=== PATIENT | female | born 1970 | race Caucasian/White ===

== ENCOUNTER 2017-08-19 14:24 | Outpatient (CLI) | payer OTHER | END 2017-08-19 14:25 | disposition home or self-care (01) | LOC: BICRAD 14:24 | PROVIDERS: ATTEND Internal Medicine Gastroenterology | DX: K59.09 Other constipation (principal) | CPT/HCPCS: 74022 ==

== ENCOUNTER 2018-01-05 13:51 | Outpatient (CLI) | payer OTHER ==
--- NOTE | 2018-01-05 16:02 | ULT ---
LEFT BREAST ULTRASOUND: History: Palpable abnormality of left breast. FINDINGS: Real-time imaging of the left breast at the 2 o'clock position was performed in the region of the pal pable abnormality. The palpable finding corresponds to an oblong shaped cyst measuring 2 cm. Directly adjacent to this is an irregular very vague area of decreased echogenicity which has a slightly spic ulated margin. This area is very suspicious for malignancy or possibly radial scar. The mammogram study confirms both of these lesions. On some of the spot views of the spiculated lesio n there appears to be the possibility of some central lucency. This raises the possibility that this represents an area of radial scar although carcinoma would still be considered the more likely possib ility. IMPRESSION: BIRADS category 4 - suspicious abnormality. Biopsy is recommended. I would recommend this as a needle localization and surgical excisional biopsy given some of the features on mammogram where the spicul ated area shows some possible central lucency which would raise the possibility that it represents an areas of radial scar. This and the fact that it is somewhat difficult to visualize consistently on u ltrasound would make the suggestion of an excisional biopsy as the first alternative. If desired, an ultrasound guided biopsy of the area of concern could be performed, however, if it does indeed turn o ut to be a radial scar, it would need an excisional biopsy after the procedure. These options were di scussed with the patient. Dr. Zurita's nurse was also informed of these results. POS: OFF
== END 2018-01-05 13:52 | disposition home or self-care (01) ==
LOC: BICMAMMO 13:51
PROVIDERS: ATTEND Obstetrics & Gynecology
DX: N63.21 Unspecified lump in the left breast, upper outer quadrant (principal); Z80.3 Family history of malignant neoplasm of breast
CPT/HCPCS: 77066; G0279

== ENCOUNTER → 2018-01-07 | Day surgery (SDC) | payer OTHER ==
--- NOTE | 2018-01-07 15:04 | ULT ---
LEFT BREAST BIOPSY WITH ULTRASOUND GUIDANCE: Date: 01/07/18 HISTORY: Irregular shadowing in the left breast. COMPARISON: 01/05/18. FINDINGS: Successful left breast ultrasound guided biopsy. A total of three 14 gauge core biopsy samples were p erformed. Tissue placed in Formalin. Post biopsy clip was placed. TECHNIQUE: Consent obtained to perform a left breast ultrasound guided biopsy. Irregular mass was identified. Sk in prepped and draped in sterile fashion. 1% lidocaine, buffered with sodium bicarbonate, was used fo r local anesthesia. Under ultrasound guidance, three 14 gauge core biopsy samples were obtained. Samp les place directly in Formalin. Post biopsy clip was placed. Post biopsy clip mammograms performed an d clip position is appropriate. IMPRESSION: Successful left breast biopsy with ultrasound guidance. POS: [facility]
== END ==
LOC: BICULT 12:44
PROVIDERS: ATTEND Surgery
PROC: 0HBU3ZX Excision of Left Breast, Percutaneous Approach, Diagnostic (ICD-10-PCS; principal; 2018-01-07)
DX: D05.12 Intraductal carcinoma in situ of left breast (principal); Z79.899 Other long term (current) drug therapy
CPT/HCPCS: 19100; 76942; 88305; 88341; 88342

== ENCOUNTER 2018-01-25 10:13 | Outpatient (CLI) | payer OTHER ==
[2018-01-25 11:55] LABS: #Basophils 0.1 thou/uL (0.0-0.2); #Eosinphils 0.1 thou/uL (0.0-0.7); #Lymphocytes 2.4 thou/uL (1.20-3.40); #Monocytes 0.7 thou/uL (0.11-0.59); #Neutrophils 6.6 thou/uL (1.40-6.50); %Basophils 1.1 % (0.0-1.0); %Eosinophils 0.8 % (0.0-10.0); %Lymphocytes 23.8 % (21.0-51.0); %Monocytes 7.4 % (0.0-10.0); %Neutrophils 66.7 % (42.0-75.0); Hemoglobin 15.2 g/dL (12.0-16.0); Mean Corpuscular HGB CONC 33.6 g/dL (32.0-36.0); Mean Corpuscular Hemoglobin 31.7 pg (27.0-31.0); Mean Corpuscular Volume 94.5 fL (78.0-98.0); Mean Platelet Volume 7.3 fL (7.4-10.4); Platelet Count 250 thou/uL (130-400); RBC Distribution Width 10.9 % (11.5-14.5); Red Blood Cell (RBC) Count 4.79 mill/uL (4.20-5.40); White Blood Cell (WBC) Count 9.9 thou/uL (4.8-10.8)
[2018-01-25 12:15] LABS: Anion Gap 10 mmol/L (10-20); BUN (Urea Nitrogen) 20 mg/dL (7.0-18.7); Calc. Creatinine Clearance 0 mL/min (70-130); Calcium 10.6 mg/dL (7.8-10.44); Carbon Dioxide 24 mmol/L (22-29); Chloride 107 mmol/L (98-107); Estimated GFR-MDRD 72; Glucose 89 mg/dL (70-105); Potassium 4.7 mmol/L (3.5-5.1); Sodium 136 mmol/L (136-145)
== END 2018-01-25 10:14 | disposition home or self-care (01) ==
LOC: LABBT 10:13
PROVIDERS: ATTEND Surgery
DX: Z01.812 Encounter for preprocedural laboratory examination (principal); C50.912 Malignant neoplasm of unspecified site of left female breast
CPT/HCPCS: 80048; 85025

== ENCOUNTER 2018-01-29 07:58 | Day surgery (SDC) | payer OTHER ==
[2018-01-25 10:49] VITALS: BMI 22.1
[2018-01-29] MEDS ORDERED: CEFAZOLIN 2 GM/50 ML BAG ONE (11:51)
[2018-01-29] MEDS ORDERED: Midazolam HCl 2 mg/2 ml Vial ONE (11:52)
[2018-01-29] MEDS ORDERED: Bupivacaine/Epinephrine 0.25% 30 ML VIAL ONE (12:20)
--- NOTE | 2018-01-29 12:24 | NM ---
RADIONUCLIDE LYMPHOSCINTIGRAPHY LEFT BREAST: Date: 01/29/18 HISTORY: left breast cancer. FINDINGS: After explaining the procedure and answering all questions, the areolar aspect of the left breast was carefully cleansed. Sterile technique was then used to inject a total volume of 1 mL liquid containi ng 386 microcuries technetium-99m filtered sulfur colloid intradermally in 4 equal aliquots at the 12 o'clock, 3 o'clock, 6 o'clock, and 9 o'clock periareolar positions of the left breast. Tissue was ma ssaged by the patient to distribute the radiotracer. Imaging was obtained. Immediate imaging showed r adiotracer uptake at the axillary tail of the left breast. Skin over the sentinel lymph node was marked and the patient was sent to day surgery in good conditio n. IMPRESSION: Left breast lymphoscintigraphy, revealing sentinel lymph node at the axillary tail left breast. POS: [facility]
--- NOTE | 2018-01-29 12:41 | MMO ---
NEEDLE LOCALIZATION MAMMOGRAPHIC GUIDED LEFT BREAST CANCER: HISTORY: Left breast cancer. FINDINGS: After explaining the procedure and answering all questions, the biopsy clip and mass at the lateral a spect of the left breast were visualized. Sterile technique, buffered local anesthesia, mammographic guidance, and a lateral approach were used to carefully advance a 20-elliott Ecru needle and wire to l ie immediately deep to the hyperdense mass at the lateral aspect of the left breast and immediately a nterior to the localization clip. The hyperdense mass lies approximately 1.5 cm from the tip of the needle. Final images were marked and sent with the patient for day surgery. The patient tolerated t he procedure well and was transferred to nuclear medicine department in good condition. IMPRESSION: Technically successful needle localization left breast cancer. POS: [facility]
[2018-01-29] MEDS ORDERED: Lidocaine 2% PF 5 ML VIAL ONE (12:43)
[2018-01-29] MEDS ORDERED: Fentanyl 100 MCG/2 ML VIAL ONE ×2 (12:48→14:22)
[2018-01-29] MEDS ORDERED: PROPOFOL 200 MG/20 ML VIAL ONE (13:20)
[2018-01-29] MEDS ORDERED: Ketorolac Tromethamine 30 MG/ML VIAL ONE (13:20)
[2018-01-29] MEDS ORDERED: Dexamethasone 20 MG/5 ML VIAL ONE (13:20)
[2018-01-29] MEDS ORDERED: Ondansetron PF 4 MG/2 ML Vial ONE (13:20)
--- NOTE | 2018-01-29 14:36 | OP ---
DATE OF PROCEDURE: 01/29/2018 PREOPERATIVE DIAGNOSIS: Left breast cancer, clinical stage T1 N0 MX. POSTOPERATIVE DIAGNOSIS: Left breast cancer, clinical stage T1 N0 MX. PROCEDURES: 1. Left partial mastectomy after needle localization. 2. Left deep axillary node biopsy using sentinel node protocol. SURGEON: Damian Schofield M.D. ANESTHESIA: General. ESTIMATED BLOOD LOSS: Minimal. COMPLICATIONS: None. SPECIMEN: Left breast mass marked with 2 short superior and 1 long lateral and sent to path for lebron shade diagnosis. Left sentinel node found and sent. INDICATION: The patient is a 47-year-old female who presents with a clinical stage T1 N0 left breast cancer. She had needle localization on the day of surgery as well as lymphoscintigraphy. TECHNIQUE: The patient was taken to the operating room and placed supine on the table. After genera l anesthetic was obtained, 5 mL of methylene blue dye infiltrated under the left nipple and massaged for 10 minutes. The left chest, axilla and arms are all prepped and draped in a sterile fashion. Cu rved incision was made at the inferior aspect of the left axilla. Cautery dissected down through cla vipectoral fascia. Neoprobe was used to find an area of increased counts. There is blue node in thi s area. A clump of lymph node is removed with high counts on the back table. The background count d ropped to zero. These were sent as sentinel nodes. The wound was irrigated. Local anesthetic was a pplied. The wound was closed using 3-0 Vicryl, 4-0 Monocryl and Dermabond. Next, an areolar incision was made on the lateral aspect of the left nipple and flaps were raised sup erior medially and inferior laterally around the needle localization wire. The specimen is sent to x -ray when it was marked with 2 short superior, 1 long lateral and sent to specimen. X-ray reveals th e clip and needle to be in the specimen. It was then sent to path for final diagnosis. The wound is irrigated. The wound was closed using 3-0 Vicryl, 4-0 Monocryl and Dermabond. The patient is en ro tribe to recovery in stable condition. All instrument counts, needle counts and lap counts were correc t.
--- NOTE | 2018-01-29 15:00 | MMO ---
SURGICAL SPECIMEN MAMMOGRAPHY: HISTORY: Breast cancer. FINDINGS: Mammographic evaluation of the surgical specimen obtained by Dr. Schofield shows the localization wire and clip and a hyperdense lesion to overlie the specimen soft tissue. Findings were called to OR6 at the time of the exam. CODE CR POS: [facility]
[2018-01-29] MEDS ORDERED: HYDROcodone/Acetaminophen 5/325 mg Tablet ONE (15:11)
== END 2018-01-29 16:45 | disposition home or self-care (01) ==
LOC: SDC 07:58
PROVIDERS: ATTEND Surgery
PROC: 0HBU0ZZ Excision of Left Breast, Open Approach (ICD-10-PCS; principal; 2018-01-29)
PROC: 07B60ZX Excision of Left Axillary Lymphatic, Open Approach, Diagnostic (ICD-10-PCS; principal; 2018-01-29)
DX: C50.512 Malignant neoplasm of lower-outer quadrant of left female breast (principal); C77.3 Secondary and unspecified malignant neoplasm of axilla and upper limb lymph nodes; R56.9 Unspecified convulsions; Z17.0 Estrogen receptor positive status [ER+]; Z79.899 Other long term (current) drug therapy
CPT/HCPCS: 19281; 76098; 78195; 88307; 88342; 96374; A9541; J2001; J2250; J3010; Q9968

== ENCOUNTER 2018-02-09 09:12 | Outpatient (CLI) | payer OTHER ==
--- NOTE | 2018-02-09 14:12 | NM ---
WHOLE BODY BONE SCAN: HISTORY: A 47-year-old female with malignant neoplasm of the upper, outer quadrant of the left breast. Left b reast cancer. RADIOPHARMACEUTICAL: Technetium 99m MDP, 32 millicuries, injected intravenously. COMPARISON: None. FINDINGS: Increased uptake in the shoulders, sternoclavicular joints, elbows, wrists, ankles, and feet is consi stent with degenerative changes. There is a focal area of increased uptake in the right 10th rib. Tracer excretion through the kidneys is within normal limits. 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 Correlation with plain radiographs is recommended. POS: [facility]
== END 2018-02-09 09:13 | disposition home or self-care (01) ==
LOC: NM 09:12
PROVIDERS: ATTEND Internal Medicine Hematology & Oncology
DX: C50.919 Malignant neoplasm of unspecified site of unspecified female breast (principal)
CPT/HCPCS: 78306; A9503

== ENCOUNTER 2018-02-17 10:02 | Outpatient (CLI) | payer OTHER ==
--- NOTE | 2018-02-17 12:28 | RAD ---
CHEST TWO VIEW SERIES: History: Malignant neoplasm of breast. FINDINGS: There is an area of air density overlying the left breast soft tissues. No focal consolidation, effus ion, or discrete pneumothorax. Reference right rib series for additional details. Catheter tubing ove rlying the upper abdomen. IMPRESSION: 2. Air density of the left breast soft tissues. Correlate clinically. 2. No focal consolidation. POS: [facility]
--- NOTE | 2018-02-17 12:55 | RAD ---
RIGHT RIBS THREE VIEWS: History: Abnormal activity on bone scan at the posterior right 10th rib. Assess for possible metastatic lesion . History of breast cancer. FINDINGS: Three views of right ribs obtained. On the oblique view of the lower ribs there is a questioned subtle lucency in the posterior right ten th rib which would correspond to the area of activity seen on recent bone scan. This is not appreciat ed on the two other images although the 10th rib is somewhat obscured on the other two images due to the hemidiaphragm. CT could provide better osseous definition of this lesion. IMPRESSION: On a single oblique image there is suggestion of an area of lucency in the posterior right 10th rib w hich would correspond to the area of activity noted on bone scan. This is poorly evaluated by plain f ilm. Consider CT scan. POS: [facility]
== END 2018-02-17 10:03 | disposition home or self-care (01) ==
LOC: BICRAD 10:02
PROVIDERS: ATTEND Internal Medicine Hematology & Oncology
DX: C50.412 Malignant neoplasm of upper-outer quadrant of left female breast (principal); R93.7 Abnormal findings on diagnostic imaging of other parts of musculoskeletal system; R92.2 Inconclusive mammogram
CPT/HCPCS: 71046

== ENCOUNTER 2018-02-25 12:49 | Outpatient (CLI) | payer OTHER ==
[~2018-02-25 12:49] MED LIST: Iopamidol 370 76% 100 ML VIAL ONE
--- NOTE | 2018-02-25 15:51 | CT ---
CHEST CT WITH CONTRAST ABDOMEN CT WITH CONTRAST PELVIC CT WITH CONTRAST 02/25/18 HISTORY: Left breast lumpectomy in January 2018. Breast cancer. Possible lesion in the left 10th rib noted on recent bone scan. CORRELATION: Bone scan 02/09/18. FINDINGS: CHEST CT: Trachea and central bronchi are patent. No masses. No consolidation. No pleural effusion or pneumotho rax. Dependent atelectatic changes are noted. There is a large mass in the left breast which may represent tumor versus hematoma. Correlate clinica lly. This mass measures 6.1 x 3.9 cm with attenuation coefficient of 33 Hounsfield units. No mediastinal hematoma or mass. There is a small amount of fluid in the superior pericardial recess. No hilar lymphadenopathy. Heart size is normal. No pericardial effusion. The thoracic and abdominal aorta have a normal caliber. No periaortic fat stranding. Note is made of a gastric lap band. No evidence of significant right axillary lymphadenopathy. Possible marginal left axillary lymph node measuring 1.1 x [address]: Liver, spleen, pancreas and adrenal glands have appropriate enhancement. No gastrohepatic, retrocrural or periportal lymphadenopathy. Unremarkable gallbladder. No mesenteric mass, lymphadenopathy, free air or free fluid. Symmetric attenuation of the psoas muscl es. Symmetric enhancement of the kidneys. Bilaterally, no obstructive uropathy. Gastric mucosa, duodenum and multiple normal caliber small bowel loops are noted. As stated above, th ere is evidence of a gastric lap band. Ileocecal junction is normal. Normal caliber appendix. Contras t and fecal material in a nondistended, nondilated colon. CT PELVIS: Urinary bladder is unremarkable. Both adnexal structures are also unremarkable. There is no pelvic ma ss, lymphadenopathy or free air. Small amount of free fluid is noted. No lytic or blastic lesions in the bony thorax or bony pelvis. There is no CT evidence of metastases in the posterior left 9th, 10th, 11th rib. IMPRESSION: 1. No evidence of metastases in the abdomen or pelvis. 2. No evidence of a lung parenchymal nodule. 3. Presumed postoperative changes in the left breast. Residual tumor cannot be excluded. Mildly enlarged left axillary lymph node as described above. 4. No evidence of metastases in the chest. POS: [facility]
== END 2018-02-25 12:50 | disposition home or self-care (01) ==
LOC: BICCT 12:49
PROVIDERS: ATTEND Internal Medicine Hematology & Oncology
DX: C50.412 Malignant neoplasm of upper-outer quadrant of left female breast (principal); R59.0 Localized enlarged lymph nodes
CPT/HCPCS: 71260; 74177

== ENCOUNTER 2018-09-26 23:52 | Emergency (ER) | payer OTHER ==
[2018-09-27] MEDS ORDERED: Ondansetron PF 4 MG/2 ML Vial ONE (00:36)
[2018-09-27] MEDS ORDERED: Promethazine HCl 25 MG/ML VIAL ONE (01:05)
[2018-09-27] MEDS ORDERED: Morphine 2 MG/ML SYRINGE ONE (01:05)
[2018-09-27 01:11] LABS: #Basophils 0.1 thou/uL (0.0-0.2); #Eosinphils 0.1 thou/uL (0.0-0.7); #Lymphocytes 1.1 thou/uL (1.20-3.40); #Monocytes 0.5 thou/uL (0.11-0.59); #Neutrophils 7.6 thou/uL (1.40-6.50); %Basophils 0.8 % (0.0-1.0); %Eosinophils 0.7 % (0.0-10.0); %Lymphocytes 11.5 % (21.0-51.0); %Monocytes 5.2 % (0.0-10.0); %Neutrophils 81.8 % (42.0-75.0); Hemoglobin 13.3 g/dL (12.0-16.0); Mean Corpuscular HGB CONC 34.7 g/dL (32.0-36.0); Mean Corpuscular Hemoglobin 33.7 pg (27.0-31.0); Mean Platelet Volume 7.2 fL (7.4-10.4); Platelet Count 160 thou/uL (130-400); RBC Distribution Width 10.7 % (11.5-14.5); Red Blood Cell (RBC) Count 3.95 mill/uL (4.20-5.40); White Blood Cell (WBC) Count 9.3 thou/uL (4.8-10.8)
[2018-09-27 01:47] LABS: ALT (SGPT) 28 U/L (8-55); AST (SGOT) 22 U/L (5-34); Albumin 3.8 g/dL (3.5-5.0); Alkaline Phosphatase 60 U/L (40-150); Anion Gap 11 mmol/L (10-20); BUN (Urea Nitrogen) 18 mg/dL (7.0-18.7); Bilirubin, Total 0.2 mg/dL (0.2-1.2); Calc. Creatinine Clearance 0 mL/min (70-130); Calcium 9.2 mg/dL (7.8-10.44); Carbon Dioxide 22 mmol/L (22-29); Chloride 109 mmol/L (98-107); Estimated GFR-MDRD 60; Globulin 2.6 g/dL (2.4-3.5); Glucose 143 mg/dL (70-105); Potassium 4.2 mmol/L (3.5-5.1); Protein, Total 6.4 g/dL (6.0-8.3); Sodium 138 mmol/L (136-145)
[2018-09-27 02:30] LABS: Bilirubin Negative (Negative); Blood, Urine Negative (Negative); Clarity Clear (Clear); Glucose, Urine (Dipstick) Normal (Negative); Leukocyte Negative Leu/uL (Negative); Nitrite Negative (Negative); Protein, Urine (Dipstick) Negative (Neg-Trace); Urobilinogen Normal mg/dL (Less than 2)
[2018-09-27] MEDS ORDERED: Aspirin Chewable 81 MG TAB ONE (02:37)
--- NOTE | 2018-09-27 07:50 | CT ---
PRELIMINARY REPORT/[facility]/EMERGENCY AFTER HOURS PROCEDURE: EXAM: CT Angiography Chest With Contrast EXAM DATE/TIME: 09/27/2018 1:48 AM CLINICAL HISTORY: 47 years old, female; Chest pain; Patient HX: Presents to ED after unwitnessed syncopal episode. PT reports this sometimes happens when she has a virus. PT reports long drive today, moving furniture when she returned, and that she passed out while going to get a drink of water when she got home. PT reports normal po intake. PT reports bilateral breast tenderness after remission of stage 2 breast cancer, stage 0 after radiation without chemotherapy. PT reports nausea. Historian reports PT has been pale looking since this am, but reports. PT denies hematochezia, or vaginal bleeding. PT reports pain to bilateral calves. PT denies history of blood clots. PT denies abd pain, back pain. PT reports pain to, SOB. PT reports chest tightness that she relates to anxiety. PT reports pain to tailbone due to fall from syncope. PT reports she is unsure if she hit her head. PT denies h/o anemia . PT denies smoking history. Fhx: Mi, father at 50. Hyperlipidemia, HTN. SX: Partial hysterectomy. TECHNIQUE: Imaging protocol: Axial computed tomographic angiography images of the chest with intravenous contrast using CT angiography protocol. Coronal and sagittal reformatted images were created and reviewed. 3D rendering: MIP reconstructed images were created and reviewed. COMPARISON: No relevant prior studies available. FINDINGS: Tubes, catheters and devices: Gastric banding device present. Small hiatal hernia. Esophagus is unremarkable. Pulmonary arteries: Normal. No pulmonary emboli. Aorta: Unremarkable. No aortic aneurysm. No aortic dissection. Thyroid: Incompletely visualized right thyroid nodule. Lungs: Scarring/post radiation change in the anterolateral left lung. Pleural space: Unremarkable. No pneumothorax. No pleural effusion. Heart: Unremarkable. No cardiomegaly. No pericardial effusion. Lymph nodes: Unremarkable. No enlarged lymph nodes. Bones/joints: Unremarkable. No acute fracture. Soft tissues: Diffuse skin thickening of the left breast with a 3 cm low attenuation nodular structur e in the left breast, potentially sequelae of treated breast cancer per report. Recommend correlation with history and breast imaging workup if necessary. IMPRESSION: 1. Incompletely visualized right thyroid nodule. 2. Diffuse skin thickening of the left breast with a 3 cm low attenuation nodular structure in the le ft breast, potentially sequelae of treated breast cancer per report. Recommend correlation with history and breast imaging workup if necessary. Thank you for allowing us to participate in the care of your patient. Dictated and Authenticated by: Amilcar Manzo MD 09/27/2018 2:54 AM Central Time ([place] & [place]) FINAL REPORT Exam: CT ANGIOGRAM CHEST WITH 3D RENDERING: IMPRESSION: Incompletely visualized right thyroid nodule. Skin thickening left breast with evidence for postoperative change in the left breast and some left a nterior lateral upper lobe somewhat pleural-based scarring probably from radiation. This report is in agreement with a preliminary report. Transcribed Date/Time: 09/27/2018 8:08 AM
--- NOTE | 2018-09-27 07:51 | ULT ---
PRELIMINARY REPORT/[facility]/EMERGENCY AFTER HOURS PROCEDURE: EXAM: US Duplex Left Lower Extremity Veins, Limited EXAM DATE/TIME: 09/27/2018 2:05 AM CLINICAL HISTORY: 47 years old, female; Other: Lt calf pain TECHNIQUE: Imaging protocol: Real-time Duplex ultrasound of the Left Lower Extremity with 2-D fox scale, color Doppler flow and spectral waveform analysis. Limited exam focused on the left lower extremity veins. COMPARISON: No relevant prior studies available. FINDINGS: Left deep veins: Unremarkable. The common femoral, femoral, proximal profunda femoral and popliteal veins are patent without thrombus. Normal Doppler waveforms. Normal compressibility and/or augmentation response. Left superficial veins: Unremarkable. Saphenofemoral junction is patent without thrombus. Soft tissues: Unremarkable. IMPRESSION: No acute findings. No evidence of deep vein thrombosis. Thank you for allowing us to participate in the care of your patient. Dictated and Authenticated by: Amilcar Manzo MD 09/27/2018 2:49 AM Central Time ([place] & [place]) FINAL REPORT BY DR. ANTHONY Emergency after-hours study ULTRASOUND DOPPLER DUPLEX VENOUS LEFT LOWER EXTREMITY: DATE: 09/27/2018 HISTORY: 47-year-old female with left lower extremity pain TECHNIQUE: Grayscale, color-flow, and spectral analysis, of major veins of left lower extremity. FINDINGS: There is demonstration of blood flow with normal compressibility, of the left common femoral, profund a femoral, greater saphenous, femoral, popliteal, and posterior tibial, veins. Agree with preliminary report by [facility]. IMPRESSION: Negative. No deep venous thrombosis of left lower extremity. Transcribed Date/Time: 09/27/2018 8:10 AM
[2018-09-27] MEDS ORDERED: ISOVUE-370 76%-LOCM 1 ML ONE (12:05)
--- NOTE | 2018-10-02 13:21 | EKG ---
Test Reason : Blood Pressure : / mmHG Vent. Rate : 068 BPM Atrial Rate : 068 BPM P-R Int : 146 ms QRS Dur : 088 ms QT Int : 402 ms P-R-T Axes : 051 065 038 degrees QTc Int : [address] elevation/MT Normal sinus rhythm Normal ECG Confirmed by CYRIL MCKEON M.D. ([id number]), scientific publications editor MAGALIS ARIAS ([id number]) on 10/02/2018 1:21:31 PM Referred By: Confirmed By:CYRIL MCKEON M.D.
--- NOTE | 2018-10-02 13:23 | EKG ---
Test Reason : Blood Pressure : / mmHG Vent. Rate : 065 BPM Atrial Rate : 065 BPM P-R Int : 138 ms QRS Dur : 086 ms QT Int : 412 ms P-R-T Axes : 043 057 029 degrees QTc Int : 428 ms Normal sinus rhythm Normal ECG Confirmed by CYRIL MCKEON M.D. ([id number]), acquisition editor MAGALIS ARIAS ([id number]) on 10/02/2018 1:22:52 PM Referred By: Confirmed By:CYRIL MCKEON M.D.
== END 2018-09-27 05:04 | disposition home or self-care (01) ==
LOC: ERS 23:52
DX: R07.89 Other chest pain (principal); R55 Syncope and collapse; E04.1 Nontoxic single thyroid nodule; E03.9 Hypothyroidism, unspecified; Z79.899 Other long term (current) drug therapy
CPT/HCPCS: 36415; 71275; 80053; 81003; 83880; 84484; 85025; 85379; 93005; 96361; 96374; 96375; J2270; J2405; J2550; Q9966

== ENCOUNTER 2018-11-12 11:23 | Emergency (ER) | payer OTHER ==
[~2018-11-12 11:23] MED LIST changes: +ISOVUE-370 76%-LOCM 1 ML ONE; -Iopamidol 370 76% 100 ML VIAL ONE
[2018-11-12 12:39] LABS: Bilirubin Negative (Negative); Blood, Urine Negative (Negative); Clarity Clear (Clear); Glucose, Urine (Dipstick) Normal (Negative); Leukocyte Negative Leu/uL (Negative); Nitrite Negative (Negative); Protein, Urine (Dipstick) Negative (Neg-Trace); Urobilinogen Normal mg/dL (Less than 2)
--- NOTE | 2018-11-12 12:59 | RAD ---
Exam: Chest one view HISTORY:Syncope Comparison: None FINDINGS: Cardiac silhouette: Normal Aorta: Unremarkable Pulmonary vessels: Normal Costophrenic angles: Clear LUNGS: No masses or consolidation. Pneumothorax: None Osseous abnormalities: None IMPRESSION: No acute cardiopulmonary process.
--- NOTE | 2018-11-12 13:00 | RAD ---
Exam: 3 views sacrum and coccyx HISTORY: Pain. FINDINGS: Sacral alar are preserved Symmetric sacroiliac joints spaces Intact bony pelvis. No evidence of a sacrococcygeal fracture IMPRESSION: Unremarkable exam.
[2018-11-12 13:07] LABS: #Lymphocytes 0.9 thou/uL (1.20-3.40); #Monocytes 0.5 thou/uL (0.11-0.59); #Neutrophils 6.8 thou/uL (1.40-6.50); %Basophils 0.3 % (0.0-1.0); %Eosinophils 0.3 % (0.0-10.0); %Lymphocytes 10.4 % (21.0-51.0); %Monocytes 6.2 % (0.0-10.0); %Neutrophils 82.8 % (42.0-75.0); Hemoglobin 13.6 g/dL (12.0-16.0); Mean Corpuscular HGB CONC 34.4 g/dL (32.0-36.0); Mean Corpuscular Hemoglobin 33.3 pg (27.0-31.0); Mean Corpuscular Volume 96.8 fL (78.0-98.0); Mean Platelet Volume 7.5 fL (7.4-10.4); Platelet Count 164 thou/uL (130-400); Red Blood Cell (RBC) Count 4.09 mill/uL (4.20-5.40); White Blood Cell (WBC) Count 8.3 thou/uL (4.8-10.8)
[2018-11-12 13:29] LABS: ALT (SGPT) 21 U/L (8-55); AST (SGOT) 19 U/L (5-34); Albumin 3.9 g/dL (3.5-5.0); Alkaline Phosphatase 57 U/L (40-150); Anion Gap 9 mmol/L (10-20); BUN (Urea Nitrogen) 14 mg/dL (7.0-18.7); Bilirubin, Total 0.3 mg/dL (0.2-1.2); Calc. Creatinine Clearance 0 mL/min (70-130); Calcium 9.8 mg/dL (7.8-10.44); Carbon Dioxide 24 mmol/L (22-29); Chloride 109 mmol/L (98-107); Estimated GFR-MDRD 64; Globulin 2.8 g/dL (2.4-3.5); Glucose 127 mg/dL (70-105); Lipase 73 U/L (8-78); Magnesium 2.1 mg/dL (1.6-2.6); Potassium 4.6 mmol/L (3.5-5.1); Protein, Total 6.7 g/dL (6.0-8.3); Sodium 137 mmol/L (136-145)
--- NOTE | 2018-11-12 14:12 | CT ---
EXAM: CT ABDOMEN AND PELVIS HISTORY: Syncope. Pain and nausea. History of breast cancer. COMPARISON: 02/25/2018 Procedure: Multiple contiguous axial images were obtained and a CT of the abdomen and pelvis with IV contrast. C oronal reformats were performed. FINDINGS: Lower Chest: Linear opacities in the lingula, likely representing post treatment change. Otherwise, l david bases are unremarkable Vessels: Normal caliber aorta Heart: Normal heart size. No significant pericardial fluid Abdomen: Portal vein:Patent Gallbladder: No calcified gallstones. Normal caliber wall. Liver: within normal limits. Pancreas: within normal limits. Spleen: within normal limits. Adrenals: within normal limits. Kidneys: Symmetric enhancement. Bilaterally no obstructive uropathy. Peritoneum: No ascites or free air, no fluid collection. Bowel: Limited evaluation due to lack of oral contrast administration. Percutaneous gastric lap band is demonstrated. There is a stable hiatal hernia with mucosal thickening of the distal thoracic esophagus. No evidence of small bowel obstruction. Ileocecal junction is unremarkable. Normal caliber appendix. Scattered fecal material in a nondistended, nondilated colon. Mesentery and Retroperitoneum: No enlarged mesenteric or retroperitoneal lymph nodes. Abdominal Wall: within normal limits. Pelvis: Reproductive Organs: Surgically absent uterus. Hypodensities in the left and right adnexa likely repr esenting bilateral ovarian cysts Pelvis: Small amount of free fluid in the pelvis Bladder: within normal limits. Bones: There are no osteoblastic or osteolytic lesions IMPRESSION: 1. No evidence of acute intraabdominal\pelvic abnormality. 2. Percutaneous gastric lap band as described above. Consider general surgical consultation.
== END 2018-11-12 14:37 | disposition home or self-care (01) ==
LOC: ERS 11:23
DX: N83.201 Unspecified ovarian cyst, right side (principal); N83.202 Unspecified ovarian cyst, left side; R55 Syncope and collapse; E03.9 Hypothyroidism, unspecified; Z79.899 Other long term (current) drug therapy
CPT/HCPCS: 36415; 71045; 72220; 74177; 80053; 81003; 83690; 83735; 84484; 85025; 85379; 93005; 96360; Q9966

== ENCOUNTER 2018-11-23 12:58 | Outpatient (CLI) | payer OTHER ==
[2018-11-23 14:06] LABS: Hemoglobin 13.7 g/dL (12.0-16.0); Mean Corpuscular HGB CONC 35.3 g/dL (32.0-36.0); Mean Corpuscular Hemoglobin 33.6 pg (27.0-31.0); Mean Corpuscular Volume 95.3 fL (78.0-98.0); Mean Platelet Volume 7.8 fL (7.4-10.4); Platelet Count 206 thou/uL (130-400); Red Blood Cell (RBC) Count 4.08 mill/uL (4.20-5.40); White Blood Cell (WBC) Count 7.6 thou/uL (4.8-10.8)
== END 2018-11-23 12:59 | disposition home or self-care (01) ==
LOC: LABBT 12:58
PROVIDERS: ATTEND Obstetrics & Gynecology
DX: Z01.812 Encounter for preprocedural laboratory examination (principal); Z85.3 Personal history of malignant neoplasm of breast
CPT/HCPCS: 85027; 86850; 86900; 86901

== ENCOUNTER 2018-11-24 10:17 | Day surgery (SDC) | payer OTHER ==
[2018-11-23 13:07] VITALS: BMI 22.8
[2018-11-24] MEDS ORDERED: Gabapentin 300 MG CAP ONE (10:40)
[2018-11-24] MEDS ORDERED: CeleCOXIB 100 MG CAP ONE (10:40)
[2018-11-24] MEDS ORDERED: Bupivacaine/Epinephrine 0.25% 30 ML VIAL ONE (11:03)
[2018-11-24] MEDS ORDERED: Scopolamine 1.5 mg/72 hour Patch ONE (11:21)
[2018-11-24] MEDS ORDERED: Bupivacaine HCl 0.5%/Epinephrine 1:200,000/PF 30 ml Vial ONE (11:43)
[2018-11-24] MEDS ORDERED: Propofol 1,000 MG/100 ML VIAL IV ONE (11:46)
[2018-11-24] MEDS ORDERED: Fentanyl 100 MCG/2 ML VIAL ONE ×3 (11:59→14:39)
[2018-11-24] MEDS ORDERED: Midazolam HCl 2 mg/2 ml Vial ONE ×2 (11:59→12:00)
[2018-11-24] MEDS ORDERED: Promethazine HCl 25 MG/ML VIAL ONE (14:47)
--- NOTE | 2018-11-24 20:05 | OP ---
DATE OF PROCEDURE: 11/24/2018 PREOPERATIVE DIAGNOSES: History of breast cancer, history of hysterectomy, pelvic pain, and ovarian cyst. POSTOPERATIVE DIAGNOSES: History of breast cancer, history of hysterectomy, pelvic pain, and ovarian cyst. PROCEDURES PERFORMED: Laparoscopic left oophorectomy, right salpingo-oophorectomy, and lysis of adhesions. CARDBOARD CUTTER: Michaela River PA-C ANESTHESIA: GETA. COMPLICATIONS: None. ESTIMATED BLOOD LOSS: Less than 5 mL. INTRAOPERATIVE FINDINGS: 1. Adhesive disease of the large bowel to the left pelvic sidewall and anterior abdominal wall. 2. Normal-appearing right ovary and fallopian tube segment adhered to the anterior abdominal wall, left ovary with no tubal segment noted adhered to the left pelvic sidewall. Ureters identified bilaterally. DESCRIPTION OF PROCEDURE: The patient was taken back to the OR with IV fluids running. When she was in the OR, she was placed in dorsal supine position and anesthesia was obtained. Once the patient was asleep, she was placed in low dorsal lithotomy position. The abdomen and vagina were prepped and draped in normal fashion for gynecologic laparoscopy. A Hunt catheter was placed into the bladder. The surgeons were gowned and gloved, and sponge stick was placed into the vagina using sterile technique. Surgeon's gloves were changed, and attention was turned to the laparoscopic portion of the case. Beginning at the infraumbilical fold, local anesthesia was placed through the skin and subcutaneous tissue. An 8-mm skin incision was made with a scalpel, and a Veress needle was placed through this incision. The abdomen was insufflated without difficulty. The 8-mm trocar was placed under direct visualization through the abdominal wall with the above findings noted. A right lower quadrant 10 mm and left lower quadrant 5 mm port were placed using similar technique under direct visualization. The right ovary was easily visualized as it was adhered to the anterior abdominal wall. The midline pelvis and left pelvic sidewall had a series of adhesions between the bowel and the anterior abdominal wall noted. Blunt dissection and the LigaSure were used to free these adhesions from the abdominal and pelvic sidewall to allow for visualization and access to the left ovary. After the lysis of adhesions was completed, which had approximately 20 minutes to the case, both ovaries were then easily visualized in normal-appearing. Beginning on the patient's right side, the right ovary was grasped and elevated away from the pelvic sidewall and abdominal wall. The LigaSure device was used to cauterize and dissect the right ovary and right fallopian tube segment until was completely dissected. The tubal segment was removed through the port, and the right ovary was left in the pelvis for removal later during the case. Left ovary was noted to be very densely adhered to the left pelvic sidewall. The left ureter was identified prior to beginning the dissection of the left ovary. The left ovary was grasped and elevated away from the sidewall using a blunt grasper. Blunt dissection technique was used to remove filmy adhesions of the ovary to the left pelvic sidewall and to mobilize it away from the pelvic sidewall and ureter. Once this was complete, the LigaSure device was used to dissect and remove the left ovary. The left ovary was removed under direct visualization through the right 8 mm port and was sent for pathologic review. Next, an EndoCatch bag was placed in the operative field in the right ovary. Specimen was placed into this bag. The specimen was then removed and sent for pathologic review. Laparoscopic trocar device was then used to close the 10 mm right trocar site at the abdominal wall. The areas of dissection were all irrigated and suctioned dry. Some remaining adhesive disease noted in the cul-de-sac, where the colon was adhered to the abdominal wall were cleared with blunt dissection. The pelvis was irrigated and suctioned dry. The pressure was dropped to 6 mmHg with no evidence of bleeding noted. The instrument count was correct. All instruments were removed from the abdominal cavity. The gas was released from the abdomen. All 3 skin incisions were closed with Monocryl suture and dressed with Dermabond dressing. The patient was extubated and taken to recovery room in good condition. Of note, prior to transferring the patient, the Hunt catheter and sponge stick were removed. Job ID: [id number]
== END 2018-11-24 17:19 | disposition home or self-care (01) ==
LOC: SDC 10:17
PROVIDERS: ATTEND Obstetrics & Gynecology
PROC: 0UT24ZZ Resection of Bilateral Ovaries, Percutaneous Endoscopic Approach (ICD-10-PCS; principal; 2018-11-24)
PROC: 0UT74ZZ Resection of Bilateral Fallopian Tubes, Percutaneous Endoscopic Approach (ICD-10-PCS; principal; 2018-11-24)
PROC: 0UT54ZZ Resection of Right Fallopian Tube, Percutaneous Endoscopic Approach (ICD-10-PCS; principal; 2018-11-24)
DX: N83.02 Follicular cyst of left ovary (principal); N83.8 Other noninflammatory disorders of ovary, fallopian tube and broad ligament; Z79.899 Other long term (current) drug therapy; Z85.3 Personal history of malignant neoplasm of breast; Z90.710 Acquired absence of both cervix and uterus
CPT/HCPCS: 88305; J0131; J0670; J0690; J2250; J2550; J2704; J3010

== ENCOUNTER 2019-01-06 08:13 | Outpatient (CLI) | payer OTHER ==
--- NOTE | 2019-01-06 08:54 | MMO ---
Bilateral MAMMO Bilat Diag [facility]. CLINICAL HISTORY: Patient is 48 years old and is seen for diagnostic exam. The patient has the following family history of breast cancer: mother and maternal aunt. The patient has no personal history of cancer. The patient has a history of left Lumpectomy in January, - malignant and left Ultrasound Guided Core Biopsy in December, - malignant. VIEWS: The views performed were: bilateral craniocaudal with tomosynthesis; bilateral mediolateral oblique with tomosynthesis; and bilateral mediolateral with tomosynthesis. FILMS COMPARED: The present examination has been compared to prior imaging studies performed at [facility] on 03/27/2015, 02/18/2016, 02/18/2017 and 01/05/2018. This study has been interpreted with the assistance of computer-aided detection. MAMMOGRAM FINDINGS: The breasts are heterogeneously dense, which could obscure a lesion on mammography. There are post operative changes seen in the left breast. There are no suspicious masses, suspicious calcifications, or new areas of architectural distortion. IMPRESSION: THERE IS NO MAMMOGRAPHIC EVIDENCE OF MALIGNANCY. A ROUTINE FOLLOW-UP MAMMOGRAM IN 1 YEAR IS RECOMMENDED. THE RESULTS OF THIS EXAM WERE SENT TO THE PATIENT. ACR BI-RADS Category 2 - Benign finding MAMMOGRAPHY NOTE: 1. A negative mammogram report should not delay a biopsy if a dominant of clinically suspicious mass is present. 2. Approximately 10% to 15% of breast cancers are not detected by mammography. 3. Adenosis and dense breasts may obscure an underlying neoplasm. Reported by: LEANDRO LOTT MD Electonically Signed: [id number]
== END 2019-01-06 08:14 | disposition home or self-care (01) ==
LOC: BICMAMMO 08:13
PROVIDERS: ATTEND Obstetrics & Gynecology
DX: Z08 Encounter for follow-up examination after completed treatment for malignant neoplasm (principal); Z85.3 Personal history of malignant neoplasm of breast
CPT/HCPCS: 77066; G0279

== ENCOUNTER 2019-10-25 12:21 | Outpatient (CLI) | payer OTHER ==
--- NOTE | 2019-10-25 13:12 | ULT ---
EXAM: Thyroid ultrasound: INDICATIONS: Thyroidectomy in February 2019 due to thyroid cancer. Screening. COMPARISON: None FINDINGS: No residual thyroid tissue identified. No mass or adenopathy. IMPRESSION: Negative exam
== END 2019-10-25 12:22 | disposition home or self-care (01) ==
LOC: BICULT 12:21
PROVIDERS: ATTEND Internal Medicine Endocrinology, Diabetes & Metabolism
DX: C73 Malignant neoplasm of thyroid gland (principal)
CPT/HCPCS: 76536

== ENCOUNTER 2020-01-10 08:04 | Outpatient (CLI) | payer OTHER ==
--- NOTE | 2020-01-10 08:35 | MMO ---
Bilateral MAMMO Bilat Diag [facility]. CLINICAL HISTORY: Patient is 49 years old and is seen for diagnostic exam. The patient has the following family history of breast cancer: mother and maternal aunt. The patient has no personal history of cancer. The patient has a history of left Lumpectomy in January, - malignant and left Ultrasound Guided Core Biopsy in December, - malignant. VIEWS: The views performed were: bilateral craniocaudal with tomosynthesis; bilateral mediolateral oblique with tomosynthesis; and bilateral mediolateral with tomosynthesis. FILMS COMPARED: The present examination has been compared to prior imaging studies performed at [facility] on 02/18/2016, 02/18/2017, 01/05/2018 and 01/06/2019. This study has been interpreted with the assistance of computer-aided detection. MAMMOGRAM FINDINGS: The breasts are heterogeneously dense, which could obscure a lesion on mammography. There are post operative changes seen in the left breast. There are no suspicious masses, suspicious calcifications, or new areas of architectural distortion. IMPRESSION: THERE IS NO MAMMOGRAPHIC EVIDENCE OF MALIGNANCY. A ROUTINE FOLLOW-UP MAMMOGRAM IN 1 YEAR IS RECOMMENDED. THE RESULTS OF THIS EXAM WERE SENT TO THE PATIENT. ACR BI-RADS Category 2 - Benign finding MAMMOGRAPHY NOTE: 1. A negative mammogram report should not delay a biopsy if a dominant of clinically suspicious mass is present. 2. Approximately 10% to 15% of breast cancers are not detected by mammography. 3. Adenosis and dense breasts may obscure an underlying neoplasm. Reported by: GENI PURVIS MD Electonically Signed: [id number]
== END 2020-01-10 08:05 | disposition home or self-care (01) ==
LOC: BICMAMMO 08:04
PROVIDERS: ATTEND Surgery
DX: C50.919 Malignant neoplasm of unspecified site of unspecified female breast (principal)
CPT/HCPCS: 77066; G0279

== ENCOUNTER 2021-01-15 07:46 | Outpatient (CLI) | payer BC | END 2021-01-15 07:47 | disposition home or self-care (01) | LOC: BICMAMMO 07:46 | PROVIDERS: ATTEND Surgery | DX: Z08 Encounter for follow-up examination after completed treatment for malignant neoplasm (principal); Z85.3 Personal history of malignant neoplasm of breast | CPT/HCPCS: 77066; G0279 ==

== ENCOUNTER 2021-02-26 08:42 | Outpatient (CLI) | payer BC | END 2021-02-26 08:43 | disposition home or self-care (01) | LOC: BICMAMMO 08:42 | PROVIDERS: ATTEND Internal Medicine Hematology & Oncology | DX: Z13.820 Encounter for screening for osteoporosis (principal); T38.6X5A Adverse effect of antigonadotrophins, antiestrogens, antiandrogens, not elsewhere classified, initial encounter | CPT/HCPCS: 77080 ==

== ENCOUNTER 2021-04-16 16:30 | Outpatient (CLI) | payer BC | END 2021-04-16 16:31 | disposition home or self-care (01) | LOC: SLEEPLAB 16:30 | PROVIDERS: ATTEND Internal Medicine | DX: G47.33 Obstructive sleep apnea (adult) (pediatric) (principal); R06.83 Snoring; F32.9 Major depressive disorder, single episode, unspecified; G47.00 Insomnia, unspecified; K21.9 Gastro-esophageal reflux disease without esophagitis | CPT/HCPCS: 95806 ==

== ENCOUNTER 2021-11-08 09:28 | Outpatient (CLI) | payer BC | END 2021-11-08 09:29 | disposition home or self-care (01) | LOC: SCSMRI 09:28 | PROVIDERS: ATTEND Otolaryngology Plastic Surgery within the Head & Neck | DX: R51.9 Headache, unspecified (principal); R43.1 Parosmia | CPT/HCPCS: 70553 ==

== ENCOUNTER 2022-01-16 09:12 | Outpatient (CLI) | payer BC | END 2022-01-16 09:13 | disposition home or self-care (01) | LOC: BICMAMMO 09:12 | PROVIDERS: ATTEND Surgery | DX: Z08 Encounter for follow-up examination after completed treatment for malignant neoplasm (principal); Z85.3 Personal history of malignant neoplasm of breast | CPT/HCPCS: 77066; G0279 ==

== ENCOUNTER 2023-01-27 08:45 | Outpatient (CLI) | payer BC | END 2023-01-27 08:46 | disposition home or self-care (01) | LOC: BICMAMMO 08:45 | PROVIDERS: ATTEND Surgery | DX: Z08 Encounter for follow-up examination after completed treatment for malignant neoplasm (principal); Z85.3 Personal history of malignant neoplasm of breast | CPT/HCPCS: 77066; G0279 ==

== ENCOUNTER 2025-02-14 09:44 | Outpatient (CLI) | payer BC | END 2025-02-14 09:45 | disposition home or self-care (01) | LOC: BICMAMMO 09:44 | PROVIDERS: ATTEND Family Medicine | DX: Z12.31 Encounter for screening mammogram for malignant neoplasm of breast (principal); Z80.3 Family history of malignant neoplasm of breast; Z98.890 Other specified postprocedural states; Z85.850 Personal history of malignant neoplasm of thyroid | CPT/HCPCS: 77063; 77067 ==